=== PATIENT | female | born 1980 | race Caucasian/White ===

== ENCOUNTER 2018-03-15 09:59 | Inpatient (IN) | payer OTHER ==
[~2018-03-15 09:59] MED LIST: Bicitra 30 ML UDCUP PO SCH; CEFAZOLIN/Water 2 GM/20 ML SYRINGE SLOW IVP SCH; Ondansetron PF 4 MG/2 ML Vial IVP PRN; Promethazine HCl 25 MG/ML VIAL IM PRN
[2018-03-15 11:20] LABS: Mean Corpuscular HGB CONC 33.5 g/dL (32.0-36.0); Mean Corpuscular Hemoglobin 29.3 pg (27.0-31.0); Mean Corpuscular Volume 87.2 fL (78.0-98.0); Mean Platelet Volume 7.7 fL (7.4-10.4); Platelet Count 190 thou/uL (130-400); Red Blood Cell (RBC) Count 3.77 mill/uL (4.20-5.40); White Blood Cell (WBC) Count 8.2 thou/uL (4.8-10.8)
[2018-03-15] MEDS ORDERED: ePHEDrine/0.9% NaCl/PF SYRINGE 50 mg/10 ml ONE ×2 (11:47→15:19)
[2018-03-15] MEDS ORDERED: Morphine PF 1 MG/ML SYR ONE (11:47)
[2018-03-15] MEDS ORDERED: Oxytocin 10 UNITS/ML VIAL ONE (11:47)
[2018-03-15 11:52] VITALS: BMI 45.7
[2018-03-15] MEDS ORDERED: CEFAZOLIN 2 GM in Premix Bag 1 BAG IVPB SCH (12:00)
[2018-03-15] MEDS ORDERED: Misoprostol 200 MCG TAB ONE (12:01)
[2018-03-15 12:02] LABS: HBSAg Index 0.21 S/CO (0-0.99); Hep B Surf Ag Non-Reactive S/CO (NonReactive); Syphilis Antibody Nonreactive (Nonreactive); Syphilis Antibody Index 0.02 S/CO (<1.00 Non-Reactive)
[2018-03-15] MEDS ORDERED: Methylergonovine 0.2 MG/ML VIAL ONE (12:02)
[2018-03-15] MEDS ORDERED: Carboprost 250 MCG/ML AMP ONE (12:02)
[2018-03-15] MEDS ORDERED: Tranexamic Acid 1,000 MG/10 ML VIAL ONE (12:05)
--- NOTE | 2018-03-15 12:42 | PDOC.LDHP ---
Labor and Delivery H&P HPI: 37 year old at 37 and 5/7 weeks presents for 5th today. Patient was extensively cancelled on increase chance placenta accreta, blood loss, and /hysterectomy. Patient gives consent for blood products if needed. Ultrasound, including bedside ultrasound show an anterior placenta approximately 3 cm superior to the bladder margin. Previous history of weekend lower uterine segment is reported from the last per patient, but not explicitly documented in official op report per Dr. Belia Cisneros MD. Current gestational age (weeks): 37 Grav: 5 Para: 4 Current complications: none Abnormal US findings: No Current medications: pre-mikey vitamins Previous surgical history: low tranverse CS Allergies/Adverse Reactions: Allergies Allergy/AdvReac Type Severity Reaction Status Date / Time No Known Allergies Allergy Verified 03/15/18 11:12 - Physical Exam Vital signs reviewed and normal: yes General: NAD, resting Heart: RRR Lungs: CTAB Abdomen: NTTP Extremeties: no edema FHT: category 1 - Assessment L&D Assessment: scheduled repeat section - Plan Plan: admit to L&D, to OR for section
[2018-03-15] MEDS ORDERED: Ondansetron PF 4 MG/2 ML Vial ONE ×2 (12:44→15:19)
[2018-03-15] MEDS ORDERED: Meperidine HCl/PF 25 MG/ML VIAL SLOW IVP PRN (14:09)
[2018-03-15] MEDS ORDERED: Ondansetron HCl/PF 4 MG/2 ML Vial IVP PRN (14:09)
[2018-03-15] MEDS ORDERED: Naloxone HCl 0.4 mg/ml Vial IVP PRN ×2 (14:09)
[2018-03-15] MEDS ORDERED: Ondansetron PF 4 MG/2 ML Vial IVP PRN ×2 (14:09→16:41)
[2018-03-15] MEDS ORDERED: Naloxone HCl 0.4 mg/ml Vial IV PRN (14:09)
[2018-03-15] MEDS ORDERED: HYDROmorphone 2 MG/ML VIAL SLOW IVP PRN (14:09)
[2018-03-15] MEDS ORDERED: L&D-Morphine 4 MG/ML VIAL SLOW IVP PRN (14:09)
[2018-03-15] MEDS ORDERED: Eucerin (Mineral Oil/Petrolatum,White) 30 gm Jar TOP PRN (14:09)
[2018-03-15] MEDS ORDERED: diphenhydrAMINE 50 MG/ML VIAL IVP PRN (14:09)
[2018-03-15] MEDS ORDERED: Promethazine HCl 25 MG/ML VIAL IM PRN ×2 (14:09→16:41)
[2018-03-15] MEDS ORDERED: Promethazine HCl 25 MG SUPP PR PRN (14:09)
[2018-03-15] MEDS ORDERED: Ketorolac Tromethamine 30 MG/ML VIAL IVP SCH (14:15)
[2018-03-15] MEDS ORDERED: Communication Order-Pharmacy FS SCH (14:15)
[2018-03-15] MEDS ORDERED: Ketorolac Tromethamine 30 MG/ML VIAL ONE (14:42)
[2018-03-15] MEDS: Ketorolac Tromethamine 30 MG/ML VIAL IVP PRN ×2 (14:43→22:14)
[2018-03-15] MEDS ORDERED: Misoprostol 200 MCG TAB PR PRN (16:41)
[2018-03-15] MEDS ORDERED: Simethicone Chewable 80 MG TAB PO PRN (16:41)
[2018-03-15] MEDS ORDERED: Bisacodyl 10 MG SUPP PR PRN (16:41)
[2018-03-15] MEDS ORDERED: diphenhydrAMINE 25 MG CAP PO PRN (16:41)
[2018-03-15] MEDS ORDERED: Lanolin Ointment 7 GM TUBE TOP PRN (16:41)
[2018-03-15] MEDS ORDERED: NS / Oxytocin 40 units/1000ml 1,000 ML IV SCH (16:45)
--- NOTE | 2018-03-15 20:15 | OP ---
DATE OF PROCEDURE: 03/15/2018 The patient is a 37-year-old multiparous female here for a scheduled repeat . Dr. You Rob is the primary surgeon. Please refer to his dictated note for complete details. I functioned as district administrative assistant. Job ID: [id number]
[2018-03-15] MEDS: Docusate Calcium (SURFAK) 240 MG CAP PO SCH (22:46)
[2018-03-16] MEDS ORDERED: HYDROcodone/Acetaminophen 5/325 mg Tablet PO PRN (02:15)
[2018-03-16] MEDS: Ketorolac Tromethamine 30 MG/ML VIAL IVP PRN (04:25)
[2018-03-16 06:38] LABS: Mean Corpuscular HGB CONC 34.2 g/dL (32.0-36.0); Mean Corpuscular Hemoglobin 30.5 pg (27.0-31.0); Mean Corpuscular Volume 89.3 fL (78.0-98.0); Mean Platelet Volume 7.1 fL (7.4-10.4); Platelet Count 136 thou/uL (130-400); Red Blood Cell (RBC) Count 3.27 mill/uL (4.20-5.40); White Blood Cell (WBC) Count 9.9 thou/uL (4.8-10.8)
[2018-03-16] MEDS ORDERED: Varicella virus, LIVE 0.5 ML VIAL SC ONE (09:00)
[2018-03-16] MEDS ORDERED: Adacel (T-DAP) 0.5 ML SYRINGE IM ONE (09:00)
[2018-03-16] MEDS ORDERED: Measles/Mumps/Rubella 10 MCG/0.5 ML VIAL SC ONE (09:00)
[2018-03-16] MEDS: Prenatal Vitamin 1 TAB PO SCH (09:31)
[2018-03-16] MEDS: Docusate Calcium (SURFAK) 240 MG CAP PO SCH ×2 (09:32→21:19)
[2018-03-16] MEDS: Ibuprofen 800 MG TAB PO SCH ×2 (14:28→21:19)
[2018-03-16] MEDS: HYDROcodone/Acetaminophen 5/325 mg Tablet PO PRN ×2 (17:37→22:26)
[2018-03-16] MEDS ORDERED: Ibuprofen 800 MG TAB PO SCH (22:00)
[2018-03-17] MEDS: HYDROcodone/Acetaminophen 5/325 mg Tablet PO PRN ×4 (04:35→21:45)
[2018-03-17] MEDS: Ibuprofen 800 MG TAB PO SCH ×3 (05:49→21:48)
--- NOTE | 2018-03-17 06:36 | PDOC.PP ---
Post Progress Note Post Day #: 2 Subjective: Really sore but otherwise without complaints. PO intake tolerated: yes Flatus: yes Ambulation: yes Vital Signs (12 hours) Temp Pulse Resp BP Pulse Ox 03/16/18 21:17 96 03/16/18 20:15 97.9 F 76 18 125/65 96 Weight Weight 250 lb - Physical Examination General: NAD Respiratory: non-labored breathing Abdominal: lochia (normal), no distention, appropriately TTP Fundus firm & at: below umbilicus Skin: CS incision dry & intact, no rash Neurological: no gross focal deficits Psychiatric: A&Ox3, normal affect Result Diagrams: 03/16/18 06:12 Additional Labs: Post Labs Blood Type A POSITIVE 03/15/18 10:50 Hep Bs Antigen Non-Reactive S/CO (NonReactive) 03/15/18 10:50 (1) delivery delivered Code(s): O82 - ENCOUNTER FOR DELIVERY WITHOUT INDICATION Status: Acute (2) Morbid obesity with BMI of 45.0-49.9, adult Code(s): E66.01 - MORBID (SEVERE) OBESITY DUE TO EXCESS CALORIES; Z68.42 - BODY MASS INDEX (BMI) 45.0-49.9, ADULT Status: Acute - Assessment/Plan Encouraged ambulation today. D/c tomorrow likely.
[2018-03-17] MEDS: Prenatal Vitamin 1 TAB PO SCH (08:43)
[2018-03-17] MEDS: Docusate Calcium (SURFAK) 240 MG CAP PO SCH ×2 (08:43→21:22)
[2018-03-18] MEDS: HYDROcodone/Acetaminophen 5/325 mg Tablet PO PRN (04:16)
[2018-03-18] MEDS: Ibuprofen 800 MG TAB PO SCH ×2 (06:09→13:50)
--- NOTE | 2018-03-18 06:24 | PDOC.PP ---
Post Progress Note Post Day #: 3 Subjective: 37 yo F PP day 3 s/p rLTCS X5. Mother reports she is sore, but otherwise well. No NVDC. Ambulating well, scant lochia, urinating well and passing flatus. No fever chills. PO intake tolerated: yes Flatus: yes Ambulation: yes Vital Signs (12 hours) Temp Pulse Resp BP Pulse Ox 03/17/18 21:22 97.8 F 75 20 123/66 97 Weight Weight 113.398 kg - Physical Examination General: NAD Cardiovascular: no m/r/g, RRR Respiratory: clear to auscultation bilaterally, non-labored breathing Abdominal: + bowel sounds, lochia, no distention, appropriately TTP Extremities: negative homans (B) Skin: CS incision dry & intact, no rash Neurological: no gross focal deficits Psychiatric: normal affect Result Diagrams: 03/16/18 06:12 Additional Labs: Post Labs Blood Type A POSITIVE 03/15/18 10:50 Hep Bs Antigen Non-Reactive S/CO (NonReactive) 03/15/18 10:50 (1) delivery delivered Code(s): O82 - ENCOUNTER FOR DELIVERY WITHOUT INDICATION Status: Acute - Assessment/Plan 1) s/p rLTCS: p/o day 3 pt doing well - plan for DC to home today - incision CDI - f/u Dr Rob 2 weeks Dispo: stable, plan for DC to home today this afternoon. F/u OP with Dr Rob in 2 weeks.
[2018-03-18] MEDS: Prenatal Vitamin 1 TAB PO SCH (08:28)
[2018-03-18] MEDS: Docusate Calcium (SURFAK) 240 MG CAP PO SCH (08:29)
[2018-03-18 09:28] VITALS: BP 107/57; TEMP 97.6
--- NOTE | 2018-03-20 12:47 | OP ---
DATE OF PROCEDURE: 03/15/2018 PREOPERATIVE DIAGNOSES: Intrauterine at 37 weeks and 5 days with a history of advanced maternal age and history of 4 previous sections with noted extreme thinning of the uterus at the last section, along with significant difficulty reapproximating rectus muscles due to general weakness and scarring. POSTOPERATIVE DIAGNOSES: Intrauterine at 37 weeks and 5 days with a history of advanced maternal age and history of 4 previous sections with noted extreme thinning of the uterus at the last section, along with significant difficulty reapproximating rectus muscles due to general weakness and scarring. PROCEDURE PERFORMED: Repeat low transverse section using a Pfannenstiel skin incision with no evidence of suspected placenta previa or accreta. FINDINGS: Viable female weighing 3081 g or 7 pounds 13 ounces. Apgars of 9 and 9. QUANTITATIVE BLOOD LOSS: 585 mL. COMPLICATIONS: None. DETAILS OF THE PROCEDURE: The patient was consented and taken back to the operating room where spinal anesthesia was found to be adequate. She was then prepped and draped in the normal sterile fashion. A timeout was performed by the entire operative team. The incision was then marked with a marking pen tested using sharp pickups. An incision was then made with a scalpel. The incision was carried through the adipose tissue down to the underlying rectus fascia using both sharp dissection as well as cautery. Once the fascia was identified, it was incised in the midline and then the fascial incision was carried through in both lateral directions using sharp as well as cautery dissection techniques. Next, the superior aspect of the rectus fascia was grasped with 2 Fiona clamps, which was tented up and the rectus muscles were dissected off using blunt dissection as well as cautery dissection. Similarly, the inferior aspect of the fascial incision was grasped with 2 Fiona clamps, tented up and the rectus muscles were dissected off bluntly as well as sharply. Next, the rectus muscles were in the midline and the peritoneum identified. The peritoneum was then carefully grasped with 2 hemostats and entered sharply. The peritoneal incision was extended superiorly and inferiorly and bladder blade was placed in the lower abdomen. At this point, the uterus was identified and the bladder flap was then developed using pickups with teeth as well as Metzenbaum scissors in both lateral directions. The bladder flap was then dissected downwards using the inverted block operator's finger as well as Metzenbaum scissors. The bladder blade was replaced. The lower uterine segment was then identified and entered sharply using a clean scalpel. The uterine incision was then dissected downwards until thin layer of muscle remained and this was entered bluntly using a hemostat to avoid any injury to the baby. The uterine incision was then stretched using two fingers in both lateral directions. An amniotomy was performed artificially using a hemostat and the baby was delivered using fundal pressure in a gentle fashion. Once out, the baby's mouth and nose were bulb suctioned, cord clamped and cut, and the baby was handed to waiting attendants. Next, the uterus was exteriorized, cleared of all clots and debris and the uterine incision was repaired with #1 Monocryl in a running locking fashion. A 2nd suture of the same type was used to obtain complete hemostasis at the uterine incision. The bladder flap was reapproximated using 3-0 Monocryl. Next, patient's left and right adnexa were inspected and appeared to be within normal limits. The posterior cul-de-sac was blotted dry and hemostasis assured. One more look at the uterine incision demonstrated hemostasis. Next, the uterus was replaced back within the abdomen. The peritoneum was reapproximated using 2-0 Monocryl without difficulty. The rectus muscles were then allowed to come back together and 0 chromic was used to aid in reapproximation of the muscle as necessary. The rectus fascia was then reapproximated in a running fashion using 0 Vicryl suture. The adipose tissue was then examined and appeared to be well approximated without any obvious separations. Finally, the skin was reapproximated with 3-0 Monocryl on a Bentley needle without difficulty and Dermabond adhesive was applied to the skin. Once the glue was dry, the drapes were removed and the patient was transferred to an ambulatory bed where she was taken to recovery awake and in stable condition. Sponge, lap, and needle counts were correct x3. Job ID: [id number]
== END 2018-03-18 15:20 | disposition home or self-care (01) | DRG 788 ==
LOC: L&D 09:59 → 3SW 17:07
PROVIDERS: ADMIT Obstetrics & Gynecology; ATTEND Obstetrics & Gynecology
PROC: 10D00Z1 Extraction of Products of Conception, Low, Open Approach (ICD-10-PCS; principal; 2018-03-15)
PROC: 10907ZC Drainage of Amniotic Fluid, Therapeutic from Products of Conception, Via Natural or Artificial Opening (ICD-10-PCS; 2018-03-15)
DX: O34.211 Maternal care for low transverse scar from previous cesarean delivery (principal); Z3A.37 37 weeks gestation of pregnancy; Z37.0 Single live birth; E66.01 Morbid (severe) obesity due to excess calories; O40.3XX0 Polyhydramnios, third trimester, not applicable or unspecified; O99.214 Obesity complicating childbirth
CPT/HCPCS: 36415; 36430; 51702; 85027; 86780; 86850; 86900; 86901; 87340; J1885; J2210; J2274; J2405; J2590; J3490

== ENCOUNTER 2018-03-23 09:39 | Inpatient (IN) | payer OTHER ==
[2018-03-23 10:09] LABS: #Basophils 0.1 thou/uL (0.0-0.2); #Eosinphils 0.1 thou/uL (0.0-0.7); #Lymphocytes 1.5 thou/uL (1.20-3.40); #Monocytes 0.5 thou/uL (0.11-0.59); #Neutrophils 6.3 thou/uL (1.40-6.50); %Eosinophils 1.5 % (0.0-10.0); %Lymphocytes 17.5 % (21.0-51.0); %Monocytes 6.1 % (0.0-10.0); %Neutrophils 73.9 % (42.0-75.0); Hemoglobin 10.8 g/dL (12.0-16.0); Mean Corpuscular HGB CONC 32.6 g/dL (32.0-36.0); Mean Corpuscular Hemoglobin 28.7 pg (27.0-31.0); Mean Corpuscular Volume 88.1 fL (78.0-98.0); Mean Platelet Volume 6.5 fL (7.4-10.4); Platelet Count 234 thou/uL (130-400); RBC Distribution Width 13.3 % (11.5-14.5); Red Blood Cell (RBC) Count 3.76 mill/uL (4.20-5.40); White Blood Cell (WBC) Count 8.5 thou/uL (4.8-10.8)
[2018-03-23] MEDS ORDERED: Iopamidol 370 76% 100 ML VIAL ONE (10:10)
[2018-03-23 10:16] LABS: ALT (SGPT) 23 U/L (8-55); AST (SGOT) 14 U/L (5-34); Albumin 3.1 g/dL (3.5-5.0); Alkaline Phosphatase 108 U/L (40-150); Anion Gap 12 mmol/L (10-20); BUN (Urea Nitrogen) 16 mg/dL (7.0-18.7); Bilirubin, Total 0.4 mg/dL (0.2-1.2); Calc. Creatinine Clearance 0 mL/min (70-130); Calcium 8.6 mg/dL (7.8-10.44); Carbon Dioxide 26 mmol/L (22-29); Estimated GFR-MDRD 86; Globulin 3.1 g/dL (2.4-3.5); Glucose 90 mg/dL (70-105); Protein, Total 6.2 g/dL (6.0-8.3)
[2018-03-23 10:20] LABS: Chloride 109 mmol/L (98-107); Sodium 143 mmol/L (136-145)
[2018-03-23 10:52] LABS: Bilirubin Negative (Negative); Blood, Urine Moderate (Negative); Glucose, Urine (Dipstick) Negative (Negative); Leukocyte Trace (Negative); Nitrite Negative (Negative); Protein, Urine (Dipstick) Negative (Neg-Trace); Specific Gravity, Urine 1.015 (1.005-1.030); Urobilinogen 0.2 mg/dL (0.2-1.0); pH, Urine 8.5 (5.0-9.0)
[2018-03-23 11:00] LABS: Clarity Slightly Cloudy (Clear)
[2018-03-23 11:06] LABS: Bacteria/HPF Rare-Few HPF (None Seen); Hyaline Casts/LPF NONE SEEN LPF (0-3 Hyaline); RBC/HPF 0-3 HPF (0-3); Squamous Epithelial 0-3 HPF (0-3); WBC/HPF 0-3 HPF (0-3)
--- NOTE | 2018-03-23 11:46 | RAD ---
CHEST 2 VIEWS: HISTORY: Shortness of breath. COMPARISON: Radiograph 03/09/2012. FINDINGS: There is mild blunting of both posterior costophrenic sulci. Heart size is mildly enlarged. No pneu mothorax. No focal infiltrate. IMPRESSION: Mild cardiomegaly and small effusions. No evidence for pneumonia. POS: CET
--- NOTE | 2018-03-23 13:03 | CT ---
CT ANGIOGRAM CHEST: 03/23/2018 HISTORY: Shortness of breath. Elevated D-dimer. Assess for pulmonary artery embolism. COMPARISON: None. TECHNIQUE: Axial CT imaging at 2 mm intervals, through the chest, with IV contrast, using CT angiogram protocol. Coronal and oblique sagittal 3D reformatted imaging obtained. FINDINGS: Incompletely imaged free fluid is noted adjacent to the liver, laterally. The spleen is enlarged, me asuring 15.7 cm in AP dimension. Small bilateral pleural effusions are present, right larger than left. There is no lymphadenopathy in the axillary, mediastinal, or hilar regions. The thoracic aorta is grossly unremarkable. There is no pulmonary arterial filling defect seen to suggest the presence of an acute pulmonary ember rial embolism. There is a focal area of increased density within the right lower lobe, inferiorly, abutting the righ t pleural effusion, suggesting an area of mild infiltrate and/or volume loss within the right lower l obe. Similar minimal increased density in the left lower lobe noted. Minimal linear density noted in the inferolateral aspect of the lingula. No endobronchial lesion identified. Review of the osseous structures demonstrates no acute findings. IMPRESSION: 1. Small bilateral pleural effusions with adjacent nonspecific parenchymal opacity within the lower lobes. 2. Incompletely assessed, nonspecific right upper quadrant ascites. 3. Splenomegaly. 4. No evidence for pulmonary artery embolism. POS: KINDRA
[2018-03-23 14:03] LABS: Troponin I Less than 0.010 ng/mL (< 0.028)
[2018-03-23 16:40] LABS: Troponin I 0.012 ng/mL (< 0.028)
[2018-03-23] MEDS ORDERED: HYDROcodone/Acetaminophen 5/325 mg Tablet PO PRN ×2 (18:13)
[2018-03-23] MEDS ORDERED: Ondansetron PF 4 MG/2 ML Vial IVP PRN (18:13)
[2018-03-23] MEDS ORDERED: Acetaminophen 325 MG TAB PO PRN (18:13)
[2018-03-23] MEDS ORDERED: Ondansetron ODT 4 MG TAB PO PRN (18:13)
[2018-03-23] MEDS ORDERED: Furosemide 40 MG/4 ML VIAL SLOW IVP SCH (20:45)
[2018-03-23] MEDS ORDERED: Furosemide 20 MG/2 ML VIAL SLOW IVP SCH (23:45)
--- NOTE | 2018-03-24 02:22 | HP ---
HISTORY OF PRESENT ILLNESS: This is a 37-year-old female, who is day #8 status post repeat low-transverse x5, who presented to [facility] ER with a several day history of general malaise and new onset shortness of breath. The patient states that after her last , she had experienced high blood pressures and felt that the current presentation was very similar, which prompted her to seek care at the emergency department. Patient states she has had headache, which has been unrelieved with Tylenol and [place]. Shortness of breath which started today, occurs at rest. The patient is able to ambulate, although she does have difficulty mostly secondary to her recent surgery and limitations secondary to that. The patient states that she has had significant swelling in her lower extremities, which is actually improved today compared to prior days. The patient was not urinating frequently post discharge from hospital up until today. She has put out several liters today. The patient has never experienced shortness of breath prior to today. Additionally, the patient states that she has not had any orthopnea, but she has not been attempting to lie flat secondary to her recent surgery. However, when she went into the CAT scan to rule out PE, she noted that she was significantly short of breath when lying flat. The patient denies any syncope or near syncopal episodes. She denies any past medical history of hypertension, congestive heart failure, or diabetes. On present exam , the patient denies any shortness of breath, chest pain, dizziness, or headache. [place] was consulted from [facility] ER regarding this patient. There was initial concern for pulmonary embolism as the patient came in acutely short of breath and had an elevated D-dimer at 14.48. The patient underwent a CT angiogram of the chest which ruled out pulmonary embolism, however, patient was noted to have bilateral pleural effusions on the CTA. The patient has no prior history of congestive heart failure and has never had any fluid buildup in her lungs previously. BNP was elevated at 500. Troponins were negative. The patient also was asymptomatic at the time of consultation, however, there was concern for decompensation and it was recommended that the patient be transferred to [place] for further evaluation and care, particularly to be monitored on continuous telemetry. The patient's heart rate was also noted to be in the 40s by outside emergency department. REVIEW OF SYSTEMS: A 12-point review of systems is performed and all are negative except as listed in the HPI. PAST MEDICAL HISTORY: None. PAST SURGICAL HISTORY: Low-transverse x5. SOCIAL HISTORY: The patient denies any alcohol, tobacco, or drug use. FAMILY HISTORY: The patient does have significant family history of coronary artery disease. Her father had his first heart attack in his late 40s and mother had quadruple bypass surgery in her early 50s. ALLERGIES: NO KNOWN DRUG ALLERGIES. PHYSICAL EXAMINATION: VITAL SIGNS: Temperature 98.2, pulse 50, respiratory rate 18, O2 saturation 97 % on room air, and blood pressure 159/74. GENERAL: The patient is alert and oriented x3. No acute distress. HEENT: Moist mucous membranes. No conjunctival erythema or scleral icterus. CARDIO: Bradycardia without murmurs, rubs, or gallops. RESPIRATORY: The patient is noted to have crackles at the bilateral bases. No acute respiratory distress. EXTREMITIES: No appreciable edema noted of the bilateral lower extremities. NEURO: The patient is alert and oriented x3. No focal deficits. PSYCH: The patient is alert and cooperative. The patient makes good eye contact. Good insight and judgment. LABORATORY FINDINGS: CBC reveals WBC of 8.5, hemoglobin 10.8, hematocrit 33.2, and platelet count 234. D-dimer is noted to be 14.48. CMP reveals sodium 143, potassium 4.0, chloride 109, bicarb 26, BUN 16, creatinine 0.176, calcium is noted to be 8.6, total bilirubin 0.4, AST 14, ALT 23, and alk phosphatase 108. Troponins negative x3. BNP elevated at 516.7. Urine positive only for blood and trace leukocyte esterase. EKG was performed at outside facility, which was reportedly read as sinus bradycardia. CT chest x-ray showed mild cardiomegaly with small bilateral pleural effusions. CT angiogram was negative for PEs, but did show bilateral pleural effusions. ASSESSMENT: 1. The patient is day #8, status post repeat low-transverse C- section x5. 2. Suspect cardiomyopathy. 3. Elevated blood pressure without diagnosis of hypertension in an individual with past history of preeclampsia. 4. Elevated D-dimer. 5. Bradycardia. PLAN: We will admit the patient to telemetry for continuous cardiac monitoring. A stat echo was ordered to evaluate cardiac function. The patient's symptoms are consistent with fluid overload and possible cardiomyopathy. We will give the patient a dose of 40 mg IV Lasix and re- evaluate. At this time, we will fluid-restrict 1500 mL per day and advise the patient to be on heart healthy diet. The patient is not currently requiring any oxyge. However, if the patient develop an oxygen requirement, we will provide the patient with oxygen to keep sats above 92%. Additionally, if the patient becomes hypoxic, an ABG should be run. With elevated blood pressure at the outside facility, we will continue to monitor blood pressure and give hydralazine 10 mg IVP if her systolic blood pressure is greater than 160. Of note, the patient was worked up for PE and CTA was negative. The plan at this time is to consult Cardiology and await the results of the echocardiogram. The patient may need to be on medications to improve heart function, however, we cannot make that determination until other studies have resulted. We will continue to monitor patient's kidney function with BMP. We will avoid beta-blockers as patient may be in acute heart failure exacerbation, as well as she is currently bradycardic. The patient will be on continuous telemetry monitoring. If any events occur over night, we will respond accordingly and make sure Cardiology is notified. Cardiology has been updated regarding this patient's case. We appreciate recommendations from Dr. Baxter. We will ensure that we have strict I's and O' s and weigh the patient daily to establish whether or not the patient is retaining fluid. The patient will be admitted to telemetry for continuous cardiac monitoring. This patient was seen and evaluated with Dr. Viviana Khan. We will continue to see this patient during the course of this hospital stay. Job ID: [id number] [facility]
[2018-03-24 07:02] LABS: Anion Gap 15 mmol/L (10-20); BUN (Urea Nitrogen) 12 mg/dL (7.0-18.7); Calc. Creatinine Clearance 0 mL/min (70-130); Calcium 8.7 mg/dL (7.8-10.44); Carbon Dioxide 25 mmol/L (22-29); Chloride 103 mmol/L (98-107); Estimated GFR-MDRD Greater than 90; Glucose 77 mg/dL (70-105); Potassium 3.4 mmol/L (3.5-5.1); Sodium 140 mmol/L (136-145)
--- NOTE | 2018-03-24 07:39 | PDOC.EVN ---
Event Note - Event Note Event Note: 03/24/2018 at 7:00 AM Patient doing well this AM. She states that after the lasix, she urinated a lot and can breathe much better. She denies any headache, vision changes, RUQ pain, fever, chills, or chest pain this AM. VS: BP 166/73, Pulse 50, RR 14, O2 sat 95% on RA General: Alert and oriented x3, NAD HEENT: MMM Cardio: RRR during exam, no murmurs Resp: Bibasilar crackles, improved from previous exam. No acute respiratory distress Ext: No pedal edema, pulses 2+ Neuro: No focal deficits Skin: Seroma draining serosanginous fluid on left side of incision. No erythema or purulence. A/P: POD #9 s/p rLTCS: Patient recovering well. Encourage ambulation. Suspected PP cardiomyopathy: Echo pending. Lasix effective for symptom relief. Continue as needed. Cards consulted, appreciate recs. Bradycardia: Continuous telemetry monitoring. No significant events overnight. Elevated BP without diagnosis of HTN: BP noted to be elevated again at 4:00 to 166/73. Primary team not notified. Hydralazine ordered PRN for SBP >160 but was not given. Spoke with nursing staff about parameters for BP in this patient. Asked that BP be repeated and hydralazine given if needed. Pre-E workup negatve. Seroma at C/S incision site: Draining serosanginous fluid. No purulence or surrounding erythema. Continue to monitor. Hypokalemia: Replace potassium. Dispo: Stable. Continue telemetry monitoring. Await recs from cardiology and read on echo. Bere Chaparro, PGY-2 Addendum - Attending - Attending Attestation Date/Time: 03/24/18 [id number] I personally evaluated the patient and discussed the management with Dr. Chaparro. I agree with the History, Examination, Assessment and Plan documented above.
[2018-03-24] MEDS ORDERED: Enoxaparin Sodium 40 MG/0.4 ML SYRINGE SC SCH (09:00)
[2018-03-24] MEDS: Potassium Chloride 20 MEQ TAB PO SCH (09:19)
[2018-03-24] MEDS: hydrALAZINE 20 MG/ML VIAL SLOW IVP PRN ×2 (09:25→20:11)
[2018-03-24 11:50] VITALS: TEMP 98.4
--- NOTE | 2018-03-24 17:36 | CON ---
DATE OF CONSULTATION: 03/24/2018 CARDIOLOGY CONSULTATION REASON FOR CONSULTATION: Possible cardiomyopathy. HISTORY OF PRESENT ILLNESS: Ms. Kauffman is a very pleasant 37-year-old white female, who comes to the hospital for headache and shortness of breath. She was found to be volume overloaded, given one dose of IV Lasix. She diuresed about 6 L since then and is feeling much better. She is now complaining only of a headache. Cardiology is being consulted for concern of possible cardiomyopathy. Her BNP was at 500 when she came in. PAST MEDICAL HISTORY: None. This is her 6th, normal . SOCIAL HISTORY: No alcohol, tobacco, or drugs. SURGICAL HISTORY: C-sections x5. FAMILY HISTORY: Early coronary artery disease is positive in her father with his 1st NE in his 40s and mother with bypass in her 50s. OUTPATIENT MEDICATIONS: None. ALLERGIES: NO KNOWN DRUG ALLERGIES. REVIEW OF SYSTEMS: A 12-point review of systems was done and was found to be negative unless stated in the history. She does have a headache as well. PHYSICAL EXAMINATION: VITAL SIGNS: Temperature 98.4, pulse 55, respiratory rate 18, saturating 95% on room air, and blood pressure 140/62. GENERAL: Awake, alert, and oriented x3, in no distress. HEENT: Normocephalic and atraumatic. NECK: Supple. LUNGS: Clear. CARDIOVASCULAR: S1 and S2. No S3 or S4. No murmurs. ABDOMEN: Soft. Positive bowel sounds. EXTREMITIES: 1+ edema. SKIN: Warm and dry. LABORATORY DATA: Laboratory workup was reviewed. CBC, coags, and chemistries were reviewed. BNP was 516 on admission. Troponin negative x3. UA with moderate amount of blood, trace leukocyte esterase, but no proteins. Echocardiogram was reviewed. She has normal LV function. Her right ventricle is just mildly dilated with normal function. Right ventricular pressures are mildly elevated at 42 with severe tricuspid regurgitation. ASSESSMENT AND PLAN: 1. Volume overload. 2. Headache. 3. Hypertension. 4. Mildly elevated right-sided pressures. 5. Severe tricuspid regurgitation. PLAN: Concern for preeclampsia more than any sort of cardiomyopathy, and I do not think her valvular abnormality would explain the degree of her edema unless it is acute and the valve seems to be normal function, it is more of a pressure situation. For now, we would give her one more dose of IV Lasix and we would try to control her blood pressure with medications. She wants to have medications that will allow her to continue to breast feed. Thank you for letting me to participate in the care of your patient. We will sign off. Please call with any questions. Job ID: [id number]
[2018-03-24] MEDS ORDERED: NIFEdipine XL 30 MG TAB PO SCH (20:00)
[2018-03-24 22:42] LABS: ALT (SGPT) 20 U/L (8-55); AST (SGOT) 15 U/L (5-34); Albumin 3.3 g/dL (3.5-5.0); Alkaline Phosphatase 103 U/L (40-150); Anion Gap 15 mmol/L (10-20); BUN (Urea Nitrogen) 14 mg/dL (7.0-18.7); Bilirubin, Total 0.5 mg/dL (0.2-1.2); Calc. Creatinine Clearance 155 mL/min (70-130); Calcium 8.6 mg/dL (7.8-10.44); Carbon Dioxide 23 mmol/L (22-29); Chloride 107 mmol/L (98-107); Estimated GFR-MDRD 85; Globulin 3.1 g/dL (2.4-3.5); Glucose 120 mg/dL (70-105); Potassium 3.3 mmol/L (3.5-5.1); Protein, Total 6.4 g/dL (6.0-8.3); Sodium 142 mmol/L (136-145)
[2018-03-25] MEDS ORDERED: Potassium Chloride 20 MEQ TAB PO SCH (02:00)
[2018-03-25] MEDS: Ibuprofen 800 MG TAB PO SCH ×2 (02:44→04:51)
--- NOTE | 2018-03-25 07:41 | PDOC.OBPPN ---
FMR OB PN: Subj - Interval History Day: 10 37 y/o who delivered via [facility] x5 here for SOB. She reports that her SOB has resolved after the single dose of lasix. She did complain of a generalized headache yesterday that has improved this AM after tylenol and a dose of motrin. She denies any vision changes, chest pain, RUQ pain, swelling. FMR OB PN: Obj - Maternal Vital signs: BP: 124/60 HR: 61 RR: 18 Pox: 100% on RA - Urine output I&O: 03/24/18 03/25/18 03/26/18 06:59 06:59 06:59 Intake Total 800 750 Output Total 6125 Balance -5325 750 FMR OB PN: Exam - Physical Exam General: NAD, awake, alert and oriented HEENT: MMM, conjunctiva clear, grossly normal vision, grossly normal hearing Neck: supple, FROM Heart: RRR, normal S1/S2, no murmurs/rubs/gallops, pulses present, no edema General: CTAB, no respiratory distress, good air movement, no rales/rhonchi, no wheezing Abdomen: soft, non-tender, bowel sound present Musculoskeletal: pulses present, FROM in all four extremities Lymphatic: no unusual bruising or bleeding, no purpura Psychiatric: intact recent and remote memory, good judgement and insight, normal mood and affect FMR OB PN: Data - Labs Lab results: Laboratory Results - last 24 hr 03/24/18 22:05 Sodium 142 Potassium 3.3 L Chloride 107 Carbon Dioxide 23 Anion Gap 15 BUN 14 Creatinine 0.77 Estimated GFR (MDRD) 85 Glucose 120 H Calcium 8.6 Total Bilirubin 0.5 AST 15 ALT 20 Alkaline Phosphatase 103 Serum Total Protein 6.4 Albumin 3.3 L Globulin 3.1 Albumin/Globulin Ratio 1.1 L FMR OB PN: A/P - Problem List (1) Pre-eclampsia Current Visit: Yes Status: Acute Code(s): O14.90 - UNSPECIFIED PRE-ECLAMPSIA , UNSPECIFIED TRIMESTER Qualifiers: Trimester: unspecified trimester Qualified Code(s): O14.90 - Unspecified pre-eclampsia, unspecified trimester Assessment and Plan: Patient presented with significant pulmonary edema and the initial concern was for cardiomyopathy. The patient was given a dose of 40mg IV lasix and then proceeded to diurese over 5 liters. The patient symptomatically improved following this. She had no elevation in LFT's, decrease in kidney function, or decrease in platelet count on her labwork. She also had no protein on the UA. She had an echo done that showed EF 55-60% and severe tricuspid regurgitation as well as increased right ventricular pressure. -Dr. Baxter was consulted who suspected this was due to pre-eclampsia as there were no signs of cardiomyopathy, and the tricuspid regurgitation would be unlikely to have caused this degree of pulmonary edema. -Blood pressures remained elevated with some in the 140s systolic and some up to the 160s and 180s systolic. The patient received two doses of hydralazine 10mg IV throughout the day and this improved her blood pressures significantly. She was started on Procardia XL 30mg. Since yesterday evening her blood pressures have all been <140/90. -Plan to d/c home later this evening if blood pressures remain stable with close outpatient f/u. (2) Hypokalemia Current Visit: Yes Status: Acute Code(s): E87.6 - HYPOKALEMIA Assessment and Plan: Patient had hypokalemia likely 2/2 extensive diuresis. Replaced with 40mEq KCl yesterday morning and another 40mEq yesterday evening. Disposition: Plan to d/c this evening if blood pressures remain controlled Discussion: Date/Time: 03/25/18 3527 This H&P was discussed with Dr. Aburto who agrees with the above documentation and plan. Signature: Jena Meehan MD, PGY-2
[2018-03-25] MEDS ORDERED: NIFEdipine XL 30 MG TAB PO SCH (09:00)
[2018-03-25] MEDS ORDERED: Furosemide 40 MG/4 ML VIAL SLOW IVP SCH (09:00)
[2018-03-25 09:26] VITALS: BP 136/77
[2018-03-25] MEDS: Potassium Chloride 20 MEQ TAB PO SCH (09:26)
--- NOTE | 2018-03-26 11:02 | DIS ---
DATE OF ADMISSION: 03/23/2018 DATE OF DISCHARGE: 03/25/2018 ATTENDING PHYSICIAN: Dr. Viviana Khan. DISCHARGE PHYSICIAN: Dr. Barrow. RESIDENT: Dr. Chaparro. PROCEDURES: 1. Chest x-ray showed mild cardiomegaly and small effusions. No evidence for pneumonia. 2. Chest/thorax CTA showed small bilateral pleural effusions with adjacent nonspecific appearing, opacity within the lower lobes. Splenomegaly was also noted. There is no evidence for pulmonary artery embolism. 3. Echocardiogram showed ejection fraction visually estimated at 55% to 60% with normal diastolic function. There is a mildly dilated right ventricle with normal right ventricular systolic function. There is trace mitral regurgitation. Severe tricuspid regurgitation. Elevated right ventricular systolic pressure estimated at 42 mmHg. Mild pulmonic regurgitation. The IVC was also noted to be dilated. CONSULTATION: Cardiology, Dr. Devon Baxter. PRIMARY DIAGNOSES: 1. Preeclampsia with severe features. 2. , status post repeat low transverse , presenting on postop day #8. 3. Bradycardia. 4. Hypokalemia. 5. Seroma at the incision site. DISCHARGE MEDICATIONS: 1. Nifedipine XL 30 mg p.o. daily. 2. Ibuprofen 800 p.o. q.8 hours p.r.n. 3. Hydrocodone/acetaminophen 5 mg p.o. p.r.n. HISTORY OF PRESENT ILLNESS/HOSPITAL COURSE: This is a very pleasant 37-year-old female, who initially presented to [facility] ER with shortness of breath at rest and on exertion. The patient had also stated that she was having swelling in her lower extremities over the past couple of weeks. Due to new onset shortness of breath, a CTA was performed to rule out pulmonary embolism. Although, the D-dimer was elevated at 14.48, the CTA was negative for pulmonary embolism. However, the patient was noted to have bilateral pleural effusions, which was considered to be contributing to her shortness of breath. [facility] was consulted for transfer of care. The patient was also noted to have severe range pressures at the outside facility. However, upon arrival to [facility], the patient's blood pressure was initially within normal limits. The patient had not received any medications at the outside facility. An echocardiogram was performed, which was noted to be normal. Cardiology has also been consulted due to initial concerns for cardiomyopathy. The patient was given 40 mg of IV Lasix and diuresed nearly 6 L. She states that since the diuresis, she has not had any significant shortness of breath and feels much better in regard to her breathing. Due to the normal nature of the echocardiogram, cardiomyopathy was ruled out as a potential contributed to the bilateral pleural effusions. Hence, the pulmonary edema was presumed to be secondary to preeclampsia with severe features. The patient did not have any protein on her UA. She did continue to spike severe range pressures during the course of her hospital stay. The patient was given IV hydralazine for systolic pressures greater than 160. However, while the hydralazine did work, she continued to have the severe range pressures and required initiation of oral medications which she can continue at home. The patient was started on 30 mg of nifedipine and watch for nearly 24-hour period. During this time, the patient's blood pressure seems to be well controlled with highest being in the 140s. The patient also noted that the headache she had on admission was relieved with ibuprofen and Tylenol and presumably relieved with better blood pressure control. On the afternoon of 03/25, just prior to discharge, the patient states that she was doing really well and she felt ready to go home. She was declining any Lovenox for anticoagulation and need further doses of Lasix at this time. The patient states that she has a followup appointment with Dr. Rob on , and she is going to make sure that she attends this appointments to follow up on this recent hospitalization. The patient was advised to return to the emergency department should her symptoms return. She was given precautions for visit to the clinic or emergency department. Certain precautions included severe right upper quadrant pain, vision changes, headache that will not resolve with Tylenol or ibuprofen, shortness of breath like she has experienced previously, or worsening lower extremity swelling. The patient agreed to follow up should the symptoms return. She is also advised to keep up with her blood pressure particularly until she follows up with Dr. Rob. The patient agreed to the above recommendations. Of note, while echocardiogram was presumably normal, there was noted to be severe tricuspid regurgitation. Dr. Baxter did not seem to think this contributed to the pulmonary edema, although, this should probably be followed up as an outpatient within the next several weeks. Dr. Baxter's information was provided to patient. She is advised to call the clinic for recommendations on followup. She did have a discussion with Dr. Baxter regarding the tricuspid regurgitation during this hospitalization. DISPOSITION: Stable. DISCHARGE INSTRUCTIONS: 1. Location: Home. 2. Diet: Regular. Although, the patient was advised to avoid salt. 3. Activity: As tolerated, but the patient was encouraged to ambulate frequently. 4. Followup: The patient is to follow up with Dr. Rob on as previously scheduled. She is also given information for Dr. Baxter's office to schedule appointment to further discuss her tricuspid regurgitation. Job ID: [id number]
== END 2018-03-25 16:40 | disposition home or self-care (01) | DRG 776 ==
LOC: SCSER 09:39 → 2NO 18:10 → L&D 03-24 19:01
PROVIDERS: ADMIT Obstetrics & Gynecology; ATTEND Obstetrics & Gynecology
DX: O14.15 Severe pre-eclampsia, complicating the puerperium (principal); Z82.49 Family history of ischemic heart disease and other diseases of the circulatory system; R00.1 Bradycardia, unspecified; E87.6 Hypokalemia; O99.285 Endocrine, nutritional and metabolic diseases complicating the puerperium; I07.1 Rheumatic tricuspid insufficiency; O99.43 Diseases of the circulatory system complicating the puerperium; O90.81 Anemia of the puerperium
CPT/HCPCS: 36415; 71046; 71275; 80048; 80053; 81003; 81015; 83880; 84484; 85025; 85379; 93005; 93306; J0360; J1650; J1940; Q9967

== ENCOUNTER 2018-10-11 11:56 | Emergency (ER) | payer BC, OTHER ==
[2018-10-11] MEDS ORDERED: Lidocaine Viscous Sol 2% 15 ml UD Cup ONE (12:42)
[2018-10-11] MEDS ORDERED: Mag-Al Plus 1200 MG/1200 MG/120 MG/30 ML UDCUP ONE (12:42)
[2018-10-11 13:08] LABS: MONO NEGATIVE CONTROL ZONE White (Negative) (White); MONO POSITIVE CONTROL Pink Line (Positive) (PINK/RED); Mean Corpuscular HGB CONC 34.4 g/dL (32.0-36.0); Mean Corpuscular Hemoglobin 30.2 pg (27.0-31.0); Mean Corpuscular Volume 87.8 fL (78.0-98.0); Mean Platelet Volume 8.8 fL (7.4-10.4); Mononucleosis NEGATIVE (NEGATIVE); Platelet Count 199 thou/uL (130-400); RBC Distribution Width 12.3 % (11.5-14.5); Red Blood Cell (RBC) Count 4.31 mill/uL (4.20-5.40); White Blood Cell (WBC) Count 8.6 thou/uL (4.8-10.8)
[2018-10-11 13:20] LABS: Band 7 % (5-11); Lymphocytes 13 % (21-51); MDiff Complete? YES; Monocytes 4 % (0-10); Neutrophil 76 % (42-75); Platelet Morphology Comment Appears Adequate
[2018-10-11 13:22] LABS: Anion Gap 19 mmol/L (10-20); BUN (Urea Nitrogen) 14 mg/dL (7.0-18.7); Calc. Creatinine Clearance 0 mL/min (70-130); Calcium 8.9 mg/dL (7.8-10.44); Carbon Dioxide 20 mmol/L (22-29); Chloride 103 mmol/L (98-107); Estimated GFR-MDRD Greater than 90; Glucose 88 mg/dL (70-105); Potassium 4.3 mmol/L (3.5-5.1); Sodium 138 mmol/L (136-145)
[2018-10-11 13:23] LABS: ALT (SGPT) 39 U/L (8-55); AST (SGOT) 35 U/L (5-34); Albumin 4.1 g/dL (3.5-5.0); Alkaline Phosphatase 105 U/L (40-150); Bilirubin, Direct 0.3 mg/dL (0.1-0.3); Bilirubin, Total 0.8 mg/dL (0.2-1.2); Protein, Total 8.2 g/dL (6.0-8.3)
== END 2018-10-11 14:34 | disposition home or self-care (01) ==
LOC: SCSER 11:56
DX: J02.9 Acute pharyngitis, unspecified (principal)
CPT/HCPCS: 80048; 80076; 85025; 86308; 87070; 96360

== ENCOUNTER 2018-12-18 07:01 | Day surgery (SDC) | payer BC, OTHER ==
[2018-12-17 09:06] VITALS: BMI 35.4
[2018-12-18 08:24] LABS: BHCG - Serum Negative (NEGATIVE); Pregs Control Background? CLEAR/WHITE (CLR/WHITE); Pregs Control Bar Appear? YES (CONTROL BAR)
[2018-12-18] MEDS ORDERED: Fentanyl 100 MCG/2 ML VIAL ONE ×3 (09:49→10:59)
[2018-12-18] MEDS ORDERED: Meperidine HCl/PF 25 MG/ML VIAL ONE (09:49)
[2018-12-18] MEDS ORDERED: Famotidine/PF 20 mg/2ml Vial ONE (09:49)
[2018-12-18] MEDS ORDERED: Ketorolac Tromethamine 30 MG/ML VIAL ONE (15:43)
[2018-12-18] MEDS ORDERED: PROPOFOL 200 MG/20 ML VIAL ONE (15:43)
[2018-12-18] MEDS ORDERED: Ondansetron PF 4 MG/2 ML Vial ONE (15:43)
[2018-12-18] MEDS ORDERED: Lidocaine 1% PF 5 ML VIAL ONE (15:43)
[2018-12-18] MEDS ORDERED: Dexamethasone 20 MG/5 ML VIAL ONE (15:43)
[2018-12-18] MEDS ORDERED: Succinylcholine Chloride 20 MG/ML 10 ml SYRINGE FS ONE (15:43)
--- NOTE | 2018-12-19 10:02 | OP ---
DATE OF PROCEDURE: 12/18/2018 PREOPERATIVE DIAGNOSES: Tonsillar hypertrophy and recurrent acute tonsillitis and chronic tonsillitis. POSTOPERATIVE DIAGNOSES: Tonsillar hypertrophy and recurrent acute tonsillitis and chronic tonsillitis. PROCEDURE PERFORMED: Bilateral tonsillectomy. PERMIT: Procedure's benefits, risks including those of bleeding, infection, injury, anesthesia, allergic reaction recurrent oropharyngeal bleeding requiring return to the operating room for cautery and alternatives reviewed with the patient and family who expressed understanding of the information. Consent form was signed and witnessed and a paper copy of the consent form was available for review in the paper chart. INDICATIONS: This is a female mother presenting to the clinic with chronic sore throat and fatigue from recurrent tonsillar infections and tonsillar hypertrophy. She was brought to the operating room now for treatment. DESCRIPTION OF OPERATION: The patient was brought to the operating room and laid supine on the operating room table. Anesthesia was introduced. A complete time-out was performed before commencement of the surgical procedure. The table was turned 90 degrees and the patient gently suspended using the Jose-Pawel mouth gag. A red rubber catheter was placed in the nares and a mirror was used to examine the nasopharynx. Attention was turned to the right tonsil. The right tonsil was removed 1st by incising the anterior tonsillar pillar with Bovie cautery and then dissecting it from its inferior fossa bridging vessels and fibers were cauterized on a setting of 15. The tonsil was removed anatomically in its entirety and hemostasis was achieved using suction cautery and then attention was turned to the left tonsil. The tonsil was removed in identical manner. The nasopharynx was then irrigated and suctioned and the stomach contents were suctioned. The patient was turned back to Anesthesia for emergence. Job ID: [id number]
== END 2018-12-18 13:25 | disposition home or self-care (01) ==
LOC: SDC 07:01
PROVIDERS: ATTEND Student in an Organized Health Care Education/Training Program
PROC: 0CTPXZZ Resection of Tonsils, External Approach (ICD-10-PCS; principal; 2018-12-18)
DX: J03.01 Acute recurrent streptococcal tonsillitis (principal); J35.01 Chronic tonsillitis; Z79.2 Long term (current) use of antibiotics
CPT/HCPCS: 84703; 85014; 88304; J1100; J1885; J2001; J2175; J2405; J2704; J3010; S0028